=== PATIENT | female | born 1945 | race Caucasian/White ===

== ENCOUNTER → 2018-03-07 | Outpatient (CLI) | payer MEDICARE ==
[~2018-03-07] MED LIST: RIVA10TA PO; THYR60TA PO; THYR90TA PO
== END | disposition home or self-care (01) ==
LOC: CFH 12:54
PROVIDERS: ATTEND Family Medicine
DX: N64.4 Mastodynia (principal)
CPT/HCPCS: 76642; 77066

== ENCOUNTER → 2018-06-07 | Outpatient (CLI) | payer MEDICARE ==
[~2018-06-07] MED LIST changes: +VITA100T6 PO; +[UNRECOGNIZED DRUG - OTHER] PO
[2018-06-07 08:52] LABS: BASOPHILS # (AUTO) 0.03 x10^3/uL (0-0.1); BASOPHILS % (AUTO) 1 % (0-1); EOSINOPHILS # (AUTO) 0.12 x10^3/uL (0-0.4); EOSINOPHILS % (AUTO) 2 % (1-7); LYMPHOCYTES # (AUTO) 2.47 x10^3/uL (1-3.4); LYMPHOCYTES % (AUTO) 40 % (22-44); MD NO; MEAN CORPUSCULAR HEMOGLOBIN 30.7 pg (27.0-34.8); MEAN CORPUSCULAR HGB CONC 33.5 g/dL (32.4-35.8); MEAN CORPUSCULAR VOLUME 91.8 fL (80-100); MEAN PLATELET VOLUME 8.9 fL (7.4-10.4); MONOCYTES # (AUTO) 0.47 x10^3/uL (0.2-0.8); MONOCYTES % (AUTO) 8 % (2-9); NEUTROPHILS # (AUTO) 3.09 x10^3/uL (1.8-6.8); NEUTROPHILS % (AUTO) 50 % (42-75); PLATELET COUNT 230 x10^3/uL (130-400); RED BLOOD COUNT 4.98 x10^6/uL (3.82-5.3); RED CELL DISTRIBUTION WIDTH 13.4 % (9.6-15.2)
[2018-06-07 09:02] LABS: INTERNATIONAL NORMALIZED RATIO 0.97 (0.93-1.1); PROTHROMBIN TIME 10.1 Seconds (9.6-11.5)
[2018-06-07 09:03] LABS: ANION GAP 7 mmol/L (5-15); CHLORIDE 107 mmol/L (98-107); CREATININE 0.92 mg/dL (0.55-1.02)
[2018-06-07 09:05] LABS: MICROSCOPIC AUTO
[2018-06-07 09:09] LABS: CULTURE INDICATED? NO
== END | disposition home or self-care (01) ==
LOC: STAR 07:40
PROVIDERS: ATTEND Orthopaedic Surgery Adult Reconstructive Orthopaedic Surgery
DX: Z01.818 Encounter for other preprocedural examination (principal); T84.84XA Pain due to internal orthopedic prosthetic devices, implants and grafts, initial encounter; M25.562 Pain in left knee
CPT/HCPCS: 36415; 80048; 81001; 85025; 85610; 85730; 87081; 93005

== ENCOUNTER 2018-06-19 07:43 | Inpatient (IN) | payer MEDICARE ==
[~2018-06-19] VITALS: Ht 166.4 cm; Wt 79.0 kg
[2018-06-19] MEDS ORDERED: MIDAZOLAM 1 MG/ML, 2ML ONE (08:23)
[2018-06-19] MEDS ORDERED: FENTANYL PF 250 MCG/5ML ONE (08:23)
[2018-06-19] MEDS ORDERED: PROPOFOL 10 MG/ML, 20ML ONE (08:24)
[2018-06-19] MEDS ORDERED: DEXAMETHASONE 4 MG/ML, 1ML ONE (08:24)
[2018-06-19] MEDS ORDERED: ROCURONIUM 10MG/ML,5ML ONE (08:24)
[2018-06-19] MEDS ORDERED: ONDANSETRON 2MG/ML, 2ML ONE (08:24)
[2018-06-19] MEDS ORDERED: GLYCOPYRROLATE 0.2MG/1ML, 5ML ONE (08:24)
[2018-06-19] MEDS ORDERED: NEOSTIGMINE 1 MG/ML, 10ML ONE (08:24)
[2018-06-19] MEDS ORDERED: CEFAZOLIN 1,000 MG ONE (08:24)
[2018-06-19] MEDS ORDERED: ROPIvacaine/PF 0.2%, 20 ML ONE (08:25)
[2018-06-19] MEDS ORDERED: LACTATED RINGERS 1,000 ML IV SCH (09:03)
[2018-06-19] MEDS ORDERED: VANCOMYCIN PER PHARMACY MC ONE (09:03)
[2018-06-19] MEDS ORDERED: ACETAMINOPHEN 500 MG TABLET PO STA (09:06)
[2018-06-19] MEDS ORDERED: GABAPENTIN 300 MG CAPSULE PO ONE (09:06)
[2018-06-19] MEDS ORDERED: LYSI100010 PO (09:08)
[2018-06-19] MEDS ORDERED: VANCOMYCIN 1,500 MG in SODIUM CHLORIDE 0.9% 250 ML IV ONE (09:30)
[2018-06-19] MEDS ORDERED: BIOT25005 PO (10:00)
[2018-06-19] MEDS ORDERED: VIT1CAPS6 PO (10:00)
[2018-06-19] MEDS ORDERED: MELA1TAB22 PO (10:00)
[2018-06-19] MEDS ORDERED: CHOL200085 PO (10:00)
[2018-06-19] MEDS ORDERED: UBID100C41 PO (10:00)
[2018-06-19] MEDS ORDERED: OMEG-83 PO (10:00)
[2018-06-19] MEDS ORDERED: LACT1CAP20 PO (10:00)
[2018-06-19] MEDS ORDERED: MULT-724 PO (10:00)
[2018-06-19] MEDS ORDERED: FAMO1TAB3 PO (10:00)
[2018-06-19] MEDS ORDERED: MILK175C5 PO (10:00)
[2018-06-19] MEDS ORDERED: DIPHENHYDRAMINE 50 MG/ML, 1ML ONE (10:54)
[2018-06-19] MEDS ORDERED: TRANEXAMIC ACID 100 MG/ML, 10ML ONE (10:58)
[2018-06-19] MEDS ORDERED: PROMETHAZINE 25 MG SUPP PR PRN (11:00)
[2018-06-19] MEDS ORDERED: DIPHENHYDRAMINE 50 MG/ML, 1ML IVPush ONE (11:00)
[2018-06-19] MEDS ORDERED: LABETALOL 5MG/ML, 20ML IV PRN (11:00)
[2018-06-19] MEDS ORDERED: ONDANSETRON ODT 8 MG PO PRN (11:00)
[2018-06-19] MEDS ORDERED: PROMETHAZINE 25 MG/ML, 1ML IV PRN (11:00)
[2018-06-19] MEDS ORDERED: ONDANSETRON 2MG/ML, 2ML IV PRN ×2 (11:00→13:00)
[2018-06-19] MEDS ORDERED: MEPERIDINE/PF 25MG/0.5ML IVPush PRN (11:00)
[2018-06-19] MEDS ORDERED: hydrALAzine 20 MG/ML, 1ML IV PRN (11:00)
[2018-06-19] MEDS ORDERED: OXYcodone 5 MG/5 ML ORAL.SOL UDC PO PRN (11:00)
[2018-06-19] MEDS ORDERED: FENTANYL PF 100 MCG/2ML IV PRN (11:00)
[2018-06-19] MEDS ORDERED: PROMETHAZINE 12.5 MG SUPP PR PRN ×2 (11:00→13:00)
[2018-06-19] MEDS ORDERED: PROMETHAZINE 25 MG/ML, 1ML IM PRN ×3 (11:00→13:00)
[2018-06-19] MEDS ORDERED: OXYcodone 5 MG/5 ML ORAL.SOL UDC ONE (12:47)
[2018-06-19] MEDS ORDERED: MORPHINE SULFATE 4 MG/ML, 1ML ONE (12:47)
[2018-06-19] MEDS: MORPHINE SULFATE 4 MG/ML, 1ML IVPush PRN ×2 (12:48→12:59)
[2018-06-19] MEDS ORDERED: ONDANSETRON 4 MG TABLET PO PRN (13:00)
[2018-06-19] MEDS ORDERED: DIPHENHYDRAMINE 25 MG CAPSULE PO PRN (13:00)
[2018-06-19] MEDS ORDERED: SENNA/DOCUSATE TABLET PO PRN (13:00)
[2018-06-19] MEDS ORDERED: MAGNESIUM HYDROXIDE 8%, 30ML UDC PO PRN (13:00)
[2018-06-19] MEDS ORDERED: ALUMINUM/MAG/SIMETHICONE 30 ML UDC PO PRN (13:00)
[2018-06-19] MEDS ORDERED: ACETAMINOPHEN 650 MG/20.3 ML UDC PO PRN (13:00)
[2018-06-19] MEDS ORDERED: HYDROmorphone 1 MG/ML, 1ML IV PRN (13:00)
[2018-06-19] MEDS ORDERED: BISACODYL 10 MG SUPP PR PRN (13:00)
[2018-06-19] MEDS ORDERED: OXYcodone IR 5MG TABLET PO PRN (13:00)
[2018-06-19] MEDS ORDERED: ZOLPIDEM 5MG TABLET PO PRN (13:00)
[2018-06-19] MEDS ORDERED: LORazepam 1MG TABLET PO PRN (13:00)
[2018-06-19] MEDS ORDERED: HYDROmorphone 2 MG/ML, 1ML ONE (13:05)
[2018-06-19] MEDS: HYDROmorphone 1 MG/ML, 1ML IV PRN ×3 (13:08→13:34)
[2018-06-19 14:20] VITALS: BP 123/53
[2018-06-19] MEDS: DIAZEPAM 5 MG TABLET PO PRN ×2 (14:28→19:05)
[2018-06-19] MEDS: HYDROcodone/APAP 5/325 TABLET PO PRN ×4 (15:37→21:20)
[2018-06-19] MEDS: THYROID 30 MG TABLET PO SCH (16:00)
[2018-06-19] MEDS: D5%-0.45% NACL 1,000 ML IV SCH (16:04)
[2018-06-19] MEDS: CEFAZOLIN PMX 2GM/50ML 50 ML IVPB SCH (16:49)
[2018-06-19 19:35] VITALS: BP 141/62
[2018-06-19] MEDS: RIVAROXABAN 10 MG TABLET PO SCH (20:22)
[2018-06-19] MEDS: DOCUSATE 100 MG CAPSULE PO SCH (20:22)
[2018-06-19] MEDS ORDERED: MELATONIN 3 MG TABLET PO SCH (21:00)
[2018-06-20 00:10] VITALS: BP 120/60
[2018-06-20] MEDS: CEFAZOLIN PMX 2GM/50ML 50 ML IVPB SCH (00:14)
[2018-06-20] MEDS: HYDROcodone/APAP 5/325 TABLET PO PRN ×2 (01:02→05:31)
[2018-06-20] MEDS: DIAZEPAM 5 MG TABLET PO PRN ×3 (01:02→09:46)
[2018-06-20] MEDS: D5%-0.45% NACL 1,000 ML IV SCH ×2 (02:00→07:52)
[2018-06-20 04:04] VITALS: BP 125/73
[2018-06-20] MEDS: THYROID 30 MG TABLET PO SCH (05:30)
[2018-06-20] MEDS ORDERED: DEXAMETHASONE 4 MG/ML, 1ML IVPush SCH (06:00)
[2018-06-20] MEDS ORDERED: RIVA10TA PO (06:30)
[2018-06-20] MEDS ORDERED: OXYC5TAB3 PO (06:30)
[2018-06-20] MEDS ORDERED: SENN1TAB8 PO (06:30)
[2018-06-20 07:40] VITALS: BP 121/59
[2018-06-20] MEDS: DOCUSATE 100 MG CAPSULE PO SCH (07:51)
[2018-06-20] MEDS ORDERED: TEMPLATE NON-FORMULARY MED. (Biotin** 5,000 MG) PO SCH (09:00)
[2018-06-20] MEDS ORDERED: MULTIVITAMINS/MINERALS TABLET PO SCH (09:00)
[2018-06-20 09:49] VITALS: BP 134/60
[2018-06-20] MEDS: RIVAROXABAN 10 MG TABLET PO SCH (09:57)
[2018-06-20] MEDS ORDERED: KETOROLAC 30 MG/1 ML IV SCH (13:00)
[2018-06-21] MEDS ORDERED: THYROID 30 MG TABLET PO SCH (06:00)
== END 2018-06-20 10:55 | disposition home or self-care (01) | DRG 489 ==
LOC: ORIP 08:27 → 4NOR 14:04 → DCLOUNGE 06-20 10:29
PROVIDERS: ADMIT Orthopaedic Surgery Adult Reconstructive Orthopaedic Surgery; ATTEND Orthopaedic Surgery Adult Reconstructive Orthopaedic Surgery
PROC: 0SUW09Z Supplement Left Knee Joint, Tibial Surface with Liner, Open Approach (ICD-10-PCS; 2018-06-19)
PROC: 0SPD09Z Removal of Liner from Left Knee Joint, Open Approach (ICD-10-PCS; principal; 2018-06-19 10:30)
DX: M24.562 Contracture, left knee (principal); Z88.8 Allergy status to other drugs, medicaments and biological substances; Z91.041 Radiographic dye allergy status; Z79.01 Long term (current) use of anticoagulants; Z79.899 Other long term (current) drug therapy; Z98.51 Tubal ligation status; K21.9 Gastro-esophageal reflux disease without esophagitis; Z91.018 Allergy to other foods
CPT/HCPCS: 36415; 85014; 85018; C1713; G0378; J0690; J1100; J1170; J2250; J2405; J2704; J2710; J2795; J3010; J3370; J3490; C1776; J1200; J7050; J7120

== ENCOUNTER 2019-10-18 07:34 | Outpatient (CLI) | payer MEDICARE ==
[~2019-10-18 07:34] MED LIST changes: +BIOT25005 PO; +CHOL20002 PO; +FAMO1TAB3 PO; +LACT1CAP20 PO; +LYSI100010 PO; +MELA1TAB22 PO; +MILK175C5 PO; +MULT-724 PO; +OMEG-83 PO; +OXYC5TAB3 PO; -RIVA10TA PO; +RIVA10TA2 PO; +SENN-177 PO; +UBID100C41 PO; +VIT1CAPS6 PO
[2019-10-18] MEDS ORDERED: MAGN400T36 PO (08:56)
[2019-10-18] MEDS ORDERED: [UNRECOGNIZED DRUG - OTHER] PO (08:56)
[2019-10-18] MEDS ORDERED: [UNRECOGNIZED DRUG - OTHER] PO (08:56)
[2019-10-18] MEDS ORDERED: [UNRECOGNIZED DRUG - OTHER] PO (08:56)
== END 2019-10-18 23:59 | disposition home or self-care (01) ==
LOC: STAR 07:34
PROVIDERS: ATTEND Specialist
DX: Z01.818 Encounter for other preprocedural examination (principal); N94.4 Primary dysmenorrhea; R10.2 Pelvic and perineal pain
CPT/HCPCS: 93005

== ENCOUNTER 2019-10-22 05:47 | Day surgery (SDC) | payer MEDICARE ==
[~2019-10-22] VITALS: Ht 165.1 cm; Wt 79.5 kg
[~2019-10-22 05:47] MED LIST changes: +MAGN400T36 PO; +[UNRECOGNIZED DRUG - OTHER] PO; +[UNRECOGNIZED DRUG - OTHER] PO; +[UNRECOGNIZED DRUG - OTHER] PO
[2019-10-22 06:44] VITALS: BP 134/81
[2019-10-22] MEDS ORDERED: BUPIVACAINE/PF 0.25% ONE (06:49)
[2019-10-22] MEDS ORDERED: SILVER NITRATE STICK TP ONE (06:49)
[2019-10-22] MEDS: LACTATED RINGERS 1,000 ML IV SCH ×2 (06:57→07:02)
[2019-10-22] MEDS ORDERED: CEFOTETAN PMX 2GM/50ML 50 ML IV ONE (07:00)
[2019-10-22] MEDS ORDERED: LIDOCAINE-MPF 1%, 2ML INFIL ONE (07:00)
[2019-10-22] MEDS ORDERED: FENTANYL PF 250 MCG/5ML ONE (07:15)
[2019-10-22] MEDS ORDERED: PROPOFOL 10 MG/ML, 20ML ONE (07:15)
[2019-10-22] MEDS ORDERED: MIDAZOLAM 1 MG/ML, 2ML ONE (07:15)
[2019-10-22] MEDS ORDERED: SUCCINYLCHOLINE 20 MG/ML, 10ML ONE (07:16)
[2019-10-22] MEDS ORDERED: ROCURONIUM 10MG/ML,5ML ONE (07:16)
[2019-10-22] MEDS ORDERED: ONDANSETRON 2MG/ML, 2ML ONE (07:19)
[2019-10-22] MEDS ORDERED: DEXAMETHASONE 4 MG/ML, 1ML ONE ×2 (07:19)
[2019-10-22] MEDS ORDERED: DIAZEPAM 5 MG TABLET PO ONE (07:30)
[2019-10-22] MEDS ORDERED: ACETAMINOPHEN 500 MG TABLET PO ONE (07:30)
[2019-10-22] MEDS ORDERED: FENTANYL PF 100 MCG/2ML ONE (08:28)
[2019-10-22] MEDS ORDERED: PROMETHAZINE 12.5 MG SUPP PR PRN (08:30)
[2019-10-22] MEDS: FENTANYL PF 100 MCG/2ML IV PRN ×2 (08:30→08:46)
[2019-10-22] MEDS ORDERED: hydrALAzine 20 MG/ML, 1ML IV PRN (08:30)
[2019-10-22] MEDS ORDERED: ONDANSETRON ODT 8 MG PO PRN (08:30)
[2019-10-22] MEDS ORDERED: HYDROmorphone 2 MG/ML, 1ML IVPush PRN (08:30)
[2019-10-22] MEDS ORDERED: HALOPERIDOL 5 MG/ML IV PRN (08:30)
[2019-10-22] MEDS ORDERED: MEPERIDINE/PF 25MG/ML,1ML IVPush PRN (08:30)
[2019-10-22] MEDS ORDERED: ALBUTEROL SULFATE 2.5 MG/3 ML NPPB PRN (08:30)
[2019-10-22] MEDS ORDERED: PROMETHAZINE 25 MG/ML, 1ML IV PRN (08:30)
[2019-10-22] MEDS ORDERED: ONDANSETRON 2MG/ML, 2ML IV PRN (08:30)
[2019-10-22] MEDS ORDERED: DIAZEPAM 5 MG/ML, 2ML IVPush PRN (08:30)
[2019-10-22] MEDS ORDERED: MIDAZOLAM 1 MG/ML, 2ML IV PRN (08:30)
[2019-10-22] MEDS ORDERED: EPHEDRINE 50 MG/ML, 1ML IVPush PRN (08:30)
[2019-10-22] MEDS ORDERED: OXYcodone 5 MG/5 ML ORAL.SOL UDC PO PRN (08:30)
[2019-10-22] MEDS ORDERED: LABETALOL 5MG/ML, 20ML IV PRN (08:30)
[2019-10-22] MEDS ORDERED: OXYcodone 5 MG/5 ML ORAL.SOL UDC ONE (08:47)
== END 2019-10-22 11:55 | disposition home or self-care (01) ==
LOC: OUT 05:47
PROVIDERS: ATTEND Specialist
DX: N95.0 Postmenopausal bleeding (principal); N84.0 Polyp of corpus uteri; E78.5 Hyperlipidemia, unspecified; Z79.890 Hormone replacement therapy; Z79.899 Other long term (current) drug therapy; Z91.018 Allergy to other foods; Z91.048 Other nonmedicinal substance allergy status; Z86.718 Personal history of other venous thrombosis and embolism; Z86.711 Personal history of pulmonary embolism; Z98.51 Tubal ligation status; Z90.49 Acquired absence of other specified parts of digestive tract; Z98.890 Other specified postprocedural states; Z83.3 Family history of diabetes mellitus; Z82.49 Family history of ischemic heart disease and other diseases of the circulatory system; Z80.52 Family history of malignant neoplasm of bladder
CPT/HCPCS: 58558; 88305; J0330; J1100; J2250; J2405; J2704; J3010; J3490; J7120

== ENCOUNTER 2020-04-15 19:45 | Observation (INO) | payer MEDICARE ==
[~2020-04-15] VITALS: Ht 165.1 cm; Wt 82.0 kg
[2020-04-15] MEDS ORDERED: KETOROLAC 30 MG/1 ML ONE (20:33)
[2020-04-15] MEDS ORDERED: DIAZEPAM 5 MG TABLET ONE (20:33)
--- NOTE | 2020-04-15 20:43 | NUR ---
meds per gordon nuñez in room. pt a&ox4, calm, 5/[address] stable. as
[2020-04-15] MEDS ORDERED: DIAZEPAM 5 MG TABLET PO ONE (21:00)
[2020-04-15] MEDS ORDERED: KETOROLAC 30 MG/1 ML IM ONE ×2 (21:00)
--- NOTE | 2020-04-15 21:29 | NUR ---
recheck. pt reports improved pain, able to sit on stretcher, drowsy and calm. pa in room for reeval. as
[2020-04-15] MEDS ORDERED: ONDANSETRON 2MG/ML, 2ML ONE (21:36)
[2020-04-15] MEDS ORDERED: MORPHINE SULFATE 4 MG/ML, 1ML ONE ×2 (21:36→22:33)
[2020-04-15] MEDS: MORPHINE SULFATE 4 MG/ML, 1ML IVPush PRN ×2 (21:44→22:41)
--- NOTE | 2020-04-15 21:51 | NUR ---
pt reported incr discomfort to pa. piv est, meds per oct. as
[2020-04-15] MEDS ORDERED: SODIUM CHLORIDE FLUSH 10ML SYR IVF ONE (22:00)
[2020-04-15] MEDS ORDERED: ONDANSETRON 2MG/ML, 2ML IVPush ONE (22:00)
--- NOTE | 2020-04-15 22:12 | NUR ---
pt sts pain incr, walking around room. asked to be admitted. sahm in room. as
--- NOTE | 2020-04-15 22:52 | NUR ---
2nd dose morphine ua walked to lab. as
--- NOTE | 2020-04-15 22:55 | NUR ---
report to krish bolivar. as
[2020-04-15] MEDS ORDERED: SODIUM CHLORIDE FLUSH 10ML SYR IVF PRN (23:00)
[2020-04-15] MEDS ORDERED: ONDANSETRON ODT 4 MG PO PRN (23:00)
[2020-04-15] MEDS ORDERED: ACETAMINOPHEN 325 MG TABLET PO PRN (23:00)
[2020-04-15] MEDS ORDERED: KETOROLAC 30 MG/1 ML IV PRN (23:00)
[2020-04-15] MEDS ORDERED: METHOCARBAMOL 500 MG TABLET PO PRN (23:00)
[2020-04-15] MEDS ORDERED: BISACODYL 10 MG SUPP PR PRN (23:00)
[2020-04-15 23:03] LABS: MICROSCOPIC AUTO
[2020-04-15 23:13] LABS: ALANINE AMINOTRANSFERASE 29 U/L (12-78); ALBUMIN 3.6 g/dL (3.4-5.0); ANION GAP 5 mmol/L (5-15); CALCIUM 8.9 mg/dL (8.5-10.1); CHLORIDE 110 mmol/L (98-107); CREATININE 1.05 mg/dL (0.55-1.02)
[2020-04-15 23:15] LABS: ALKALINE PHOSPHATASE 94 U/L (45-117); BILIRUBIN,TOTAL 0.4 mg/dL (0.2-1.0); TOTAL PROTEIN 7.2 g/dL (6.4-8.2)
[2020-04-15 23:17] LABS: BASOPHILS # (AUTO) 0.03 x10^3/uL (0-0.1); BASOPHILS % (AUTO) 0 % (0-1); EOSINOPHILS # (AUTO) 0.16 x10^3/uL (0-0.4); EOSINOPHILS % (AUTO) 2 % (1-7); LYMPHOCYTES # (AUTO) 3.36 x10^3/uL (1-3.4); LYMPHOCYTES % (AUTO) 47 % (22-44); MD NO; MEAN CORPUSCULAR HGB CONC 33.1 g/dL (32.4-35.8); MEAN CORPUSCULAR VOLUME 93.6 fL (80-100); MEAN PLATELET VOLUME 9.2 fL (7.4-10.4); MONOCYTES # (AUTO) 0.63 x10^3/uL (0.2-0.8); MONOCYTES % (AUTO) 9 % (2-9); NEUTROPHILS # (AUTO) 3.03 x10^3/uL (1.8-6.8); NEUTROPHILS % (AUTO) 42 % (42-75); PLATELET COUNT 189 x10^3/uL (130-400); RED BLOOD COUNT 4.68 x10^6/uL (3.82-5.3); RED CELL DISTRIBUTION WIDTH 13.8 % (9.6-15.2)
--- NOTE | 2020-04-15 23:21 | NUR ---
Hospitalist at bedside
[2020-04-15] MEDS ORDERED: TEMPLATE NON-FORMULARY MED. (Thyroid** (Armour Thyroid**) 60 MG) PO SCH (23:30)
[2020-04-15] MEDS ORDERED: THYROID 90 MG PO SCH (23:30)
--- NOTE | 2020-04-15 23:58 | NUR ---
Report given to Steffi THRASHER. RN states room isn't ready
[2020-04-16] MEDS: LIDODERM 5% PATCH TD SCH (00:56)
[2020-04-16] MEDS: CEFDINIR 300 MG CAPSULE PO SCH ×2 (00:56→08:24)
[2020-04-16] MEDS: SODIUM CHLORIDE FLUSH 10ML SYR IVF SCH ×3 (00:56→20:17)
[2020-04-16] MEDS ORDERED: THYROID MC SCH (01:00)
[2020-04-16 01:05] VITALS: BP 127/81
[2020-04-16] MEDS: OXYcodone IR 5MG TABLET PO PRN ×4 (01:21→19:07)
[2020-04-16] MEDS ORDERED: THYROID 30 MG TABLET PO SCH (06:00)
[2020-04-16 08:08] VITALS: BP 133/65
[2020-04-16] MEDS: SENNA/DOCUSATE TABLET PO SCH (08:23)
[2020-04-16] MEDS: POLYETHYLENE GLYCOL 17 GM PACKET PO PRN (08:29)
[2020-04-16] MEDS ORDERED: GABAPENTIN 300 MG CAPSULE PO SCH (09:00)
[2020-04-16] MEDS: GABAPENTIN 300 MG CAPSULE PO SCH ×3 (09:30→20:17)
[2020-04-16] MEDS: HEPARIN 5,000 UNITS/ML, 1ML SQ SCH ×2 (11:25→17:22)
[2020-04-16] MEDS: CYCLOBENZAPRINE 10 MG TABLET PO PRN ×2 (11:26→19:07)
[2020-04-16 13:46] VITALS: BP 117/71
[2020-04-16] MEDS ORDERED: LIDO700A20 TD (15:58)
[2020-04-16] MEDS ORDERED: CYCL-259 PO (15:58)
[2020-04-16] MEDS ORDERED: LIDOCAINE 1%, 10ML ONE (16:12)
[2020-04-16] MEDS ORDERED: TRIAMCINOLONE ACETONIDE 40 MG/ML, 1ML ONE (16:12)
[2020-04-16] MEDS ORDERED: FENTANYL PF 100 MCG/2ML ONE (16:37)
[2020-04-16 18:44] VITALS: BP 132/77
[2020-04-17 00:48] VITALS: BP 127/67
[2020-04-17] MEDS: HEPARIN 5,000 UNITS/ML, 1ML SQ SCH ×2 (01:30→09:51)
[2020-04-17] MEDS ORDERED: THYROID 30 MG TABLET PO SCH (06:00)
[2020-04-17 08:00] VITALS: BP 125/78
[2020-04-17] MEDS: POLYETHYLENE GLYCOL 17 GM PACKET PO PRN (09:44)
[2020-04-17] MEDS: GABAPENTIN 300 MG CAPSULE PO SCH (09:44)
[2020-04-17] MEDS: OXYcodone IR 5MG TABLET PO PRN (09:49)
[2020-04-17] MEDS: CYCLOBENZAPRINE 10 MG TABLET PO PRN (09:50)
[2020-04-17] MEDS: LIDODERM 5% PATCH TD SCH (09:50)
[2020-04-17] MEDS: SODIUM CHLORIDE FLUSH 10ML SYR IVF SCH (09:51)
[2020-04-17] MEDS: SENNA/DOCUSATE TABLET PO SCH (09:52)
[2020-04-17] MEDS ORDERED: TRIAMCINOLONE ACETONIDE 40 MG/ML, 1ML ONE (11:45)
[2020-04-17 13:05] VITALS: BP 118/69
== END 2020-04-17 14:50 | disposition home or self-care (01) ==
LOC: ED 21:12 → INTOOBSV 23:52 → EDIP 23:52 → 4NE 04-16 00:34
PROVIDERS: ADMIT Student in an Organized Health Care Education/Training Program; ATTEND Internal Medicine
DX: M54.42 Lumbago with sciatica, left side (principal); M54.16 Radiculopathy, lumbar region; N30.90 Cystitis, unspecified without hematuria; E03.9 Hypothyroidism, unspecified; Z79.899 Other long term (current) drug therapy; Z86.718 Personal history of other venous thrombosis and embolism; Z86.711 Personal history of pulmonary embolism
CPT/HCPCS: 36415; 62323; 72131; 73502; 80053; 81001; 85025; 87086; 96372; 96374; 96375; 96376; 97161; 99285; G0378; J1885; J2270; J2405; J3010; J3301; J3490; Q0162

== ENCOUNTER 2020-05-30 19:29 | Emergency (ER) | payer MEDICARE ==
[~2020-05-30] VITALS: Ht 165.1 cm; Wt 83.1 kg
[~2020-05-30 19:29] MED LIST changes: +CYCL-259 PO; +LIDO700A20 TD
[2020-05-30] MEDS ORDERED: HYDROmorphone 1 MG/ML, 1ML INJ IM ONE (20:00)
[2020-05-30] MEDS ORDERED: ONDANSETRON ODT 4 MG PO ONE (20:00)
[2020-05-30] MEDS ORDERED: HYDROmorphone 1 MG/ML, 1ML INJ ONE (20:06)
[2020-05-30] MEDS ORDERED: ONDANSETRON 2MG/ML, 2ML ONE (20:06)
[2020-05-30 20:20] LABS: BASOPHILS % (AUTO) 0 % (0-1); EOSINOPHILS % (AUTO) 2 % (1-7); LYMPHOCYTES % (AUTO) 27 % (22-44); MEAN CORPUSCULAR HEMOGLOBIN 31.3 pg (27.0-34.8); MEAN CORPUSCULAR HGB CONC 33.4 g/dL (32.4-35.8); MONOCYTES % (AUTO) 10 % (2-9); NEUTROPHILS % (AUTO) 61 % (42-75); PLATELET COUNT 149 x10^3/uL (130-400); RED BLOOD COUNT 3.64 x10^6/uL (3.82-5.3); RED CELL DISTRIBUTION WIDTH 14.4 % (9.6-15.2)
[2020-05-30 20:21] LABS: MD NO
[2020-05-30 20:29] LABS: ANION GAP 3 mmol/L (5-15); CHLORIDE 107 mmol/L (98-107); CREATININE 0.78 mg/dL (0.55-1.02)
[2020-05-30] MEDS ORDERED: ONDANSETRON ODT 4 MG ONE (20:32)
[2020-05-30 20:42] LABS: CALCIUM 7.6 mg/dL (8.5-10.1)
--- NOTE | 2020-05-30 20:50 | NUR ---
REPORT: rec'd report from Chin THRASHER. Pt just returned [place] from [place]. Resting comfortably at this time, VSS
[2020-05-30] MEDS ORDERED: CEFAZOLIN PMX 1GM/50ML 50 ML ONE (21:11)
[2020-05-30] MEDS ORDERED: METHYLNALTREXONE 12 MG/0.6 ML SYR SQ ONE ×2 (21:28→21:30)
[2020-05-30] MEDS ORDERED: CEFAZOLIN PMX 1GM/50ML 50 ML IV ONE (21:30)
[2020-05-30 21:32] VITALS: BP 120/55
== END 2020-05-30 22:06 | disposition home or self-care (01) ==
LOC: ED 19:50
DX: M25.562 Pain in left knee (principal); M96.89 Other intraoperative and postprocedural complications and disorders of the musculoskeletal system; K59.00 Constipation, unspecified; R11.0 Nausea; R10.84 Generalized abdominal pain; R50.9 Fever, unspecified; Z86.718 Personal history of other venous thrombosis and embolism; Z86.39 Personal history of other endocrine, nutritional and metabolic disease; Z96.652 Presence of left artificial knee joint
CPT/HCPCS: 36415; 80048; 85025; 93971; 96365; 96372; 99285; J0690; J1170; Q0162